=== PATIENT | male | born 1995 ===

== ENCOUNTER 2016-12-05 16:11 | Emergency (ER) | payer SELFPAY ==
--- NOTE | 2016-12-05 17:07 | RAD ---
Indication: AC joint region LEFT shoulder pain post fall 3 days ago. Comparison: No relevant prior exams available on the [facility] PACS for comparison. Technique: Internal rotation AP, external rotation Grashey, scapular Y, axillary views LEFT shoulder Report: Normal acromioclavicular and glenohumeral joint alignment. Negative for fracture. Unremarkable soft tissue contours. IMPRESSION: Negative exam.
--- NOTE | 2016-12-05 17:21 | UC ---
Shoulder Pain HPI - HPI Summary HPI Summary: Patient presents s/p traumatic injury of the left shoulder. He fell on it playing football. He states he landed sideways directly on the side of his arm. He was seen and placed in a shoulder sling and sent in for xrays. He complains of left shoulder pain he points to the top of his shoulder. He states constant left shoulder pain that is worse with movement, and improves at rest. He states it is achy. Denies au numbness or tingling of the extremity. - History of Current Complaint Chief Complaint: UCUpperExtremity Stated Complaint: SHOULDER INJURY Time Seen by Provider: 12/05/16 16:58 Hx Obtained From: Patient Onset/Duration: Sudden Onset Timing: Constant Severity Initially: Moderate Severity Currently: Moderate Location Of Pain: Is Discrete @ - left anterior shoulder Character: Aching Aggravating Factor(s): Movement, Lifting, Flexion, Extension, Internal Rotation , External Rotation, Abduction Alleviating Factor(s): Rest Associated Signs And Symptoms: Positive: Swelling Related History: Dominant Hand Left - Risk Factors Non-Orthopedic Risk Factor: Negative DVT Risk Factors: Negative Septic Arthritis Risk Factor: Negative - Allergies/Home Medications Allergies/Adverse Reactions: Allergies Allergy/AdvReac Type Severity Reaction Status Date / Time No Known Allergies Allergy Verified 12/05/16 16:18 Home Medications: Home Medications NK [No Home Medications Reported] 12/05/16 [History Confirmed 12/05/16] PMH/Surg Hx/FS Hx/Imm Hx Previously Healthy: Yes - Surgical History Surgical History: None - Family History Known Family History: Positive: Hypertension - Social History Occupation: Student Lives: Alone Alcohol Use: Rare Substance Use Type: None Smoking Status (MU): Never Smoked Tobacco Review of Systems Constitutional: Negative Skin: Negative Eyes: Negative ENT: Negative Respiratory: Negative Cardiovascular: Negative Gastrointestinal: Negative Musculoskeletal: Decreased ROM, Myalgia All Other Systems Reviewed And Are Negative: Yes Physical Exam Triage Information Reviewed: Yes Appearance: Well-Appearing Vital Signs: Initial Vital Signs Temp 98.8 F 12/05/16 16:15 Pulse 63 12/05/16 16:15 Resp 16 12/05/16 16:15 BP 129/76 12/05/16 16:15 Pulse Ox 99 12/05/16 16:15 Vital Signs Reviewed: Yes Eye Exam: Normal ENT Exam: Normal Neck exam: Normal Respiratory Exam: Normal Cardiovascular Exam: Normal Abdominal Exam: Normal Musculoskeletal: Positive: Strength Limited @, ROM Limited @, Edema @ - right anterior shoulder over ac tendon.rom pain with flexion/extension of 30 degrees. Skin Exam: Normal Shoulder Course/Dx - Course Course Of Treatment: Patient presents s/p traumatic injury to the left shoulder, xrays were obtained and reveal a Grade I AC seperation. He was in shoulder immobizier. Declined any pain med. Will follow up with [employer] internship, also was referred to Dr. Correa if symtpoms persist past one week. Discharged home in stable condition. - Differential Dx/Diagnosis Differential Diagnosis/HQI/PQRI: AC Separation Provider Diagnoses: ac seperation Discharge - Discharge Plan Condition: Stable Disposition: HOME Patient Education Materials: Shoulder Sprain (ED) Referrals: Daniel Correa MD [Medical Doctor] -
== END 2016-12-05 17:10 | disposition home or self-care (01) ==
LOC: UCEAST 16:11
DX: S43.102A Unspecified dislocation of left acromioclavicular joint, initial encounter (principal); W19.XXXA Unspecified fall, initial encounter; Y93.61 Activity, american tackle football; Y92.9 Unspecified place or not applicable; Y99.9 Unspecified external cause status
CPT/HCPCS: 99201; G0463